=== PATIENT | male | born 1960 | race Caucasian/White ===

== ENCOUNTER 2019-01-23 07:45 | Day surgery (SDC) | payer SELFPAY ==
[2019-01-23] MEDS ORDERED: ceFAZolin Sodium (SDC) 2 GM/100 ML BAG ONE (08:08)
[2019-01-23] MEDS ORDERED: Midazolam HCl 2 mg/2 ml Vial ONE (08:22)
[2019-01-23] MEDS ORDERED: Fentanyl 100 MCG/2 ML VIAL ONE ×2 (08:22→08:46)
[2019-01-23] MEDS ORDERED: Dexamethasone 4 mg/ml Vial ONE (08:22)
--- NOTE | 2019-01-23 10:29 | RAD ---
LEFT ANKLE THREE VIEWS: History: Intraoperative film. Comparison: 01-14-19 FINDINGS: Distal fibular fracture has been fixed with plate and screws. There is an avulsive type injury of the medial malleolus and an osteochondral lesion of the talar dome. IMPRESSION: Open reduction internal fixation of the distal fibular fracture. POS: OFF
[2019-01-23] MEDS ORDERED: HYDROcodone/Acetaminophen 5/325 mg Tablet ONE (11:24)
--- NOTE | 2019-01-23 12:31 | OP ---
DATE OF PROCEDURE: 01/23/2019 PREOPERATIVE DIAGNOSIS: Left trimalleolar ankle fracture. POSTOPERATIVE DIAGNOSIS: Left trimalleolar ankle fracture. PROCEDURE PERFORMED: Open reduction and internal fixation of the left lateral malleolus. ANESTHESIA: General. GROUNDS SUPERVISOR: Marisol Lopez PA-C TOURNIQUET TIME: Approximately 50 minutes at 300 mmHg. ESTIMATED BLOOD LOSS: Minimal. IMPLANTS: Synthes 7-hole 1/3 tubular plate with combination of cancellous and cortical screws. COMPLICATIONS: None. DRAINS: None. SPECIMEN: None. OUTCOME: Near-anatomic alignment. INDICATIONS FOR PROCEDURE: The patient is a 58-year-old gentleman status post fracture of left lateral malleolus approximately 1 week prior to this surgery. On evaluation, the patient was found to have a lateral malleolus fracture with some displacement as well as a lateral shift of the talus with a medial joint space measuring approximately 8 mm. Given this lateral shift of the talus, I have recommended we proceed with open reduction and internal fixation to restore more normal anatomy. Informed consent has been obtained, I believe all questions answered. DESCRIPTION OF PROCEDURE: The patient was brought to the operating room and a time-out performed, followed by induction of general anesthesia. Next, he was positioned supine on the OR table, and a sterile prep and drape was performed of the left lower extremity. Next, the limb was exsanguinated with Esmarch bandage, tourniquet inflated to 300 mmHg. A vertical incision was made centered over the lateral malleolus, after skin was sharply incised, dissection was carried down bluntly exposing the fracture. The fracture hematoma was removed from the fracture gap using a curette and then bulb syringe was used to irrigate the wound. The fracture was then reduced and held in place with a bone tenaculum and an anterior to posterior interfragmentary screw was applied. This was followed by application of a 7-hole 1/3 tubular plate to the lateral cortex of the distal fibula with 3 cancellous screws distally and 3 cortical screws proximally to function as a neutralization device. At the completion of this, AP, lateral, and mortise x-rays of the ankle were obtained, this showed anatomic alignment of the ankle, closure of the medial joint space widening and a posterior malleolar fracture that was extremely small and did not involve a significant portion of the joint surface. As such, it was opted to not proceed with any medial stabilization given the reduction with the lateral plating. The lateral wound was then irrigated with normal saline and then closed in layers with 0 Vicryl deep, followed by 2-0 Vicryl, and benjy for the skin. Xeroform gauze, Webril, and well-molded trilaminar fiberglass splint were applied to the leg, and then, the patient was transferred to recovery room in stable condition. There were no complications. The patient tolerated the procedure well. Job ID: [id number]
== END 2019-01-23 12:20 | disposition home or self-care (01) ==
LOC: SDC 07:45
PROVIDERS: ATTEND Orthopaedic Surgery
PROC: 3E0T3BZ Introduction of Anesthetic Agent into Peripheral Nerves and Plexi, Percutaneous Approach (ICD-10-PCS; principal; 2019-01-23)
PROC: 0QSK04Z Reposition Left Fibula with Internal Fixation Device, Open Approach (ICD-10-PCS; principal; 2019-01-23)
DX: S82.852A Displaced trimalleolar fracture of left lower leg, initial encounter for closed fracture (principal); G89.18 Other acute postprocedural pain; Z87.891 Personal history of nicotine dependence; X58.XXXA Exposure to other specified factors, initial encounter
CPT/HCPCS: 76000; C1713; J0690; J1100; J2250; J3010